=== PATIENT | female | born 1985 | race Two or more races ===

== ENCOUNTER 2018-11-12 13:11 | Emergency (ER) | payer OTHER ==
[~2018-11-12] VITALS: Ht 162.6 cm; Wt 52.2 kg
--- NOTE | 2018-11-12 13:53 | NUR ---
ED Nurse Note: Pt came into the ER w/ complaints of abdominal pain w/ n,v, and constipation x 1 week. Pt is complaining of 5/10 abdominal pain. Non radiating. A + O x4. Ambulatory. Skin warm to touch. Pt's uine has been sent to lab.
[2018-11-12 14:00] VITALS: BP 105/65
[2018-11-12 14:23] LABS: APPEARANCE,URINE CLEAR; BILIRUBIN, URINE NEGATIVE (NEGATIVE); GLUCOSE, URINE (UA) NEGATIVE (NEGATIVE); KETONES,URINE NEGATIVE (NEGATIVE); LEUKOCYTE ESTERASE ,URINE 1+ (NEGATIVE); NITRITE,URINE NEGATIVE (NEGATIVE); PH,URINE 5 (4.5-8.0); PROTEIN,URINE NEGATIVE (NEGATIVE); UROBILINOGEN,URINE NORMAL MG/DL (0.0-1.0)
[2018-11-12 14:31] LABS: COLOR,URINE YELLOW
--- NOTE | 2018-11-12 14:40 | NUR ---
ED Nurse Note: Called US regarding order.
[2018-11-12 14:46] LABS: BASOPHILS % (AUTO) 0.8 % (0.0-2.0); EOSINOPHILS % (AUTO) 0.7 % (0.0-3.0); HEMATOCRIT 36.7 % (37.0-47.0); HEMOGLOBIN 12.4 G/DL (12.0-16.0); LYMPHOCYTES % (AUTO) 22.9 % (20.0-45.0); MEAN CORPUSCULAR VOLUME 91 FL (80-99); MONOCYTES % (AUTO) 6.4 % (1.0-10.0); NEUTROPHILS % (AUTO) 69.3 % (45.0-75.0); PLATELET COUNT 236 K/UL (150-450); RED BLOOD COUNT 4.04 M/UL (4.20-5.40); RED CELL DISTRIBUTION WIDTH 11.1 % (11.6-14.8); WHITE BLOOD COUNT 9.3 K/UL (4.8-10.8)
--- NOTE | 2018-11-12 14:51 | NUR ---
ED Nurse Note: Pt went down to US.
--- NOTE | 2018-11-12 15:39 | Emergency Room Report ---
History of Present Illness General Chief Complaint: Abdominal Pain Source: Patient Present Illness HPI 33-year-old female presents ED for evaluation. Complaining of abdominal pain with nausea and vomiting. Pain is cramping, 5 out of 10, nonradiating. States she's had some foul-smelling discharge. States she's had history of BV in the past. Denies dysuria or hematuria. States her last menstrual period was early September but she believes it was because of stress. Does not believe she is . No other aggravating relieving factors. Denies any other associated symptoms Allergies: Coded Allergies: No Known Allergies (Unverified , 11/12/18) Patient History Past Medical History: none Past Surgical History: none Pertinent Family History: none Social History: Denies: smoking, alcohol use, drug use Last Menstrual Period: 09/2018 Now: No Immunizations: UTD Reviewed Nursing Documentation: PMH: Agreed; PSxH: Agreed Nursing Documentation-PMH Past Medical History: No Stated History Review of Systems All Other Systems: negative except mentioned in HPI Physical Exam Vital Signs Date Time Temp Pulse Resp B/P (MAP) Pulse Ox O2 Delivery O2 Flow Rate FiO2 11/12/18 13:26 98.8 104 20 102/67 98 Room Air 11/12/18 14:00 97 [id number] EP Interpretation: reviewed, normal General Appearance: no apparent distress, alert, GCS 15, non-toxic Head: normocephalic, atraumatic Eyes: bilateral eye normal inspection, bilateral eye PERRL ENT: hearing grossly normal, normal pharynx, no angioedema, normal voice Neck: full range of motion, supple/symm/no masses Respiratory: chest non-tender, lungs clear, normal breath sounds, speaking full sentences Cardiovascular #1: regular rate, rhythm, no edema Cardiovascular #2: 2+ carotid (R), 2+ carotid (L), 2+ radial (R), 2+ radial (L) , 2+ dorsalis pedis (R), 2+ dorsalis pedis (L) Gastrointestinal: normal bowel sounds, non tender, soft, non-distended, no guarding, no rebound Rectal: deferred Genitourinary: normal inspection, no CVA tenderness, other - parcel post carrier present - scant white discharge noted Musculoskeletal: back normal, gait/station normal, normal range of motion, non- tender Neurologic: alert, oriented x3, responsive, motor strength/tone normal, sensory intact, speech normal Psychiatric: judgement/insight normal, memory normal, mood/affect normal, no suicidal/homicidal ideation Reflexes: 3+ bicep (R), 3+ bicep (L), 3+ tricep (R), 3+ tricep (L), 3+ knee (R) , 3+ knee (L) Skin: normal color, no rash, warm/dry, well hydrated Lymphatic: no adenopathy Medical Decision Making Diagnostic Impression: Primary Impression: Qualified Codes: Z34.90 - Encounter for supervision of normal , unspecified, unspecified trimester Additional Impression: Vaginal discharge ER Course Hospital Course 33-year-old female presents to ED complaining of lower abdominal pain. ? discharge. Differential diagnoses include: gastrits, gastroenterits, ectopic , ovarian torsion/cyst, UTI Clinical course Patient placed on stretcher in ED. After initial history, physical exam reveals female in no acute distress. Abdomen soft. No guarding or rebound. Coloring Room Man present. Pelvic exam performed. Wet mount collected. UA negative. positive. Patient states that she knew her period was late however she did not leave she was . Labs and ultrasound ordered Labs-no leukocytosis, electrolytes okay. wet mount unremarkable OB ultrasound-IUP detected with heart rate Discussed findings with patient. Reassurance given. Safe for discharge with close outpatient follow-up. Patient just moved here. We'll provide referrals Diagnosis - , vaginal discharge Stable and discharged to home. Followup with PMD/RN ORTHOPEDIC. Return to ED if symptoms recur or worsen Labs Test 11/12/18 13:50 11/12/18 14:32 Urine Color Yellow Urine Appearance Clear Urine pH 5 (4.5-8.0) Urine Specific [place] 1.025 (1.005-1.035) Urine Protein Negative (NEGATIVE) Urine Glucose (UA) Negative (NEGATIVE) Urine Ketones Negative (NEGATIVE) Urine Blood 1+ (NEGATIVE) Urine Nitrite Negative (NEGATIVE) Urine Bilirubin Negative (NEGATIVE) Urine Urobilinogen Normal MG/DL (0.0-1.0) Urine Leukocyte Esterase 1+ (NEGATIVE) Urine RBC 2-4 /HPF (0 - 2) Urine WBC 0-2 /HPF (0 - 2) Urine Squamous Epithelial Cells Few /LPF (NONE/OCC) Urine Bacteria Few /HPF (NONE) Urine Mucus Few /LPF (NONE/OCC) Urine HCG, Qualitative Positive (NEGATIVE) White Blood Count 9.3 K/UL (4.8-10.8) Red Blood Count 4.04 M/UL (4.20-5.40) Hemoglobin 12.4 G/DL (12.0-16.0) Hematocrit 36.7 % (37.0-47.0) Mean Corpuscular Volume 91 FL (80-99) Mean Corpuscular Hemoglobin 30.7 PG (27.0-31.0) Mean Corpuscular Hemoglobin Concent 33.7 G/DL (32.0-36.0) Red Cell Distribution Width 11.1 % (11.6-14.8) Platelet Count 236 K/UL (150-450) Mean Platelet Volume 6.5 FL (6.5-10.1) Neutrophils (%) (Auto) 69.3 % (45.0-75.0) Lymphocytes (%) (Auto) 22.9 % (20.0-45.0) Monocytes (%) (Auto) 6.4 % (1.0-10.0) Eosinophils (%) (Auto) 0.7 % (0.0-3.0) Basophils (%) (Auto) 0.8 % (0.0-2.0) CT/MRI/US Diagnostic Results CT/MRI/US Diagnostic Results : Imaging Test Ordered: OB US Impression 7 week 3 day, by crown-rump length measurement, single live intrauterine . No unusual features Last Vital Signs Date Time Temp Pulse Resp B/P (MAP) Pulse Ox O2 Delivery O2 Flow Rate FiO2 11/12/18 14:00 98.7 65 22 105/65 97 Room Air 11/12/18 14:00 97 Status: improved Disposition: HOME, SELF-CARE Condition: Stable Referrals: [facility] BURGESS,REFERRING (PCP) Geoff Ureña MD Nov 12, 2018 15:39
--- NOTE | 2018-11-12 15:43 | NUR ---
ED Nurse Note: Pt back from US.
--- NOTE | 2018-11-12 16:19 | Diagnostic Imaging Report ---
Indication: Abdominal pain, cramping, positive test Technique: Transabdominal and transvaginal images. Doppler interrogation of the bilateral ovaries Comparison: none Findings: Uterus measures 7.5 cm length by 3.8 cm AP. Within the endometrium, there is a gestational sac. This demonstrates a pole with a crown-rump length of 1.2 cm, corresponding to an estimated gestational age of 7 weeks 3 days. There is positive heart activity, heart rate 158 bpm. Yolk sac is also demonstrated. No subchorionic hemorrhage demonstrated. Left ovary measures 2.5 cm length. Right ovary measures 2.9 cm length. Both ovaries demonstrate normal blood flow on Doppler imaging. A small parenchymal calcification is seen in the cervix. Hypoechoic 1 cm diameter lesions are seen in the anterior myometrium, probably small fibroids. Impression: 7 week 3 day, by crown-rump length measurement, single live intrauterine . No unusual features Incidental finding of small myometrial fibroids Normal ovaries
[2018-11-12 16:24] LABS: ANION GAP 14 mmol/L (5-15); BLOOD UREA NITROGEN 15 mg/dL (7-18); CALCIUM 9.1 MG/DL (8.5-10.1); CARBON DIOXIDE 22 MMOL/L (21-32); CHLORIDE 103 MMOL/L (98-107); CREATININE 0.5 MG/DL (0.55-1.30); POTASSIUM 4.2 MMOL/L (3.5-5.1); SODIUM 139 MMOL/L (136-145)
[2018-11-12 16:29] LABS: ALANINE AMINOTRANSFERASE 17 U/L (12-78); ALBUMIN/GLOBULIN RATIO 1.3 (1.0-2.7); ALKALINE PHOSPHATASE 42 U/L (46-116); ASPARTATE AMINO TRANSFERASE 10 U/L (15-37); BILIRUBIN,TOTAL 0.2 MG/DL (0.2-1.0)
[2018-11-12 16:52] VITALS: BP 111/68
--- NOTE | 2018-11-12 16:57 | NUR ---
ER DISCHARGE NOTE: Patient is cleared to be discharged per ERMD, pt is aox4, on room air, with stable vital signs. pt was given dc and prescription instructions, pt was able to verbalize understanding, pt id band removed without complications. pt is able to ambulate with steady gait. pt took all belongings.
== END 2018-11-12 16:57 | disposition home or self-care (01) ==
LOC: EMR 14:06
DX: O26.91 Pregnancy related conditions, unspecified, first trimester (principal); O21.9 Vomiting of pregnancy, unspecified; Z3A.01 Less than 8 weeks gestation of pregnancy; R10.30 Lower abdominal pain, unspecified; N89.8 Other specified noninflammatory disorders of vagina
CPT/HCPCS: 36415; 76801; 76830; 80053; 81003; 81025; 83690; 84702; 85025; 87210; 99284